=== PATIENT | male | born 1950 | race Caucasian/White ===

== ENCOUNTER 2017-02-27 08:40 | Day surgery (SDC) | payer BC ==
--- NOTE | 2017-02-14 22:09 | HP ---
CC: Dr. Tara Moreland; Dr. Tena, Cardiology in [place], [place] * ADMISSION HISTORY AND PHYSICAL: DATE OF ADMISSION: 02/27/17 ATTENDING SURGEON: Dr. Sean Moreira * (DICTATED BY TATI HAYNES) CHIEF COMPLAINT: Paraesophageal hiatal hernia. HISTORY OF PRESENT ILLNESS: This is a 66-year-old recently morbidly obese male who has a longstanding history of GERD and has a known hiatal hernia for many years. Earlier in the past year, he was experiencing increased shortness of breath and was evaluated by chest CT scan on 05/02/16, which showed multiple bilateral pulmonary nodules up to or less than 5 mm in size as well as a large hiatal hernia with most of the stomach in the chest with atelectasis of the left lower lobe. The patient was also initiating evaluation at that time for weight loss surgery, though on his own has lost between 50 and 60 pounds in the intervening months and at the present time is no longer considering weight loss surgery. He underwent ultrasound of the liver and gallbladder on 01/02/17, which showed hepatomegaly, particularly with enlargement of the caudate lobe as well as fatty changes of the liver. There were no gallstones. An EGD was performed on 02/01/17, which showed large hiatal hernia with a tortuous esophagus. The patient states that his shortness of breath has entirely resolved since the weight loss. His GERD symptoms are generally well controlled with daily Prilosec. He was seen by Dr. Moreira in June and then again more recently on 01/05/17. Dr. Moreira has reviewed his workup and studies and has recommended repair of this large paraesophageal hiatal hernia. The patient understands the indications, risks, benefits and alternatives and would like to proceed as scheduled with laparoscopic repair of paraesophageal hiatal hernia with fundoplication. PAST MEDICAL HISTORY: Morbid obesity, asthma and COPD, coronary artery disease (status post MN in 2005 and status post PTCA with stent in 2005 of the LAD, subsequent catheterization in 2009 showed patent stent). He is also treated for environmental allergies, sleep apnea, and osteoarthritis. He has a history of Meniere's disease with resultant hearing loss. PAST SURGICAL HISTORY: Include tonsillectomy remotely, right knee arthroscopy, and DATA ANALYTICS ANALYST with stent as noted above. No reported surgical or anesthesia complications. CURRENT MEDICATIONS: 1. Nitroglycerin 0.4 mg sublingual p.r.n. (has never needed). 2. Ramipril 5 mg daily. 3. Crestor 5 mg every other day. 4. Aspirin 81 mg daily (the patient will stop preoperatively, his last dose being 02/20/17). 5. Prilosec 20 mg daily. 6. Advair Diskus 250/50 mcg one puff daily. 7. Proventil HFA two puffs q.i.d. p.r.n. (has not required recently). 8. Multivitamin once daily. 9. Glucosamine and chondroitin one tablet b.i.d. 10. Singulair 10 mg daily. 11. Sakshi 180 mg daily. 12. Fish oil 1000 mg daily. 13. Spiriva 18 mcg 2 inhalations once daily. 14. Nasonex two sprays each nostril once daily p.r.n. (has not required recently). 15. Clonazepam 0.5 mg b.i.d. p.r.n. for Meniere's (has not required recently). 16. DuoNeb every 6 hours p.r.n. (has not required recently). 17. Spironolactone and hydrochlorothiazide 25/25 one-half tablet once daily. 18. Ibuprofen 800 mg daily p.r.n. (has not required recently). DRUG ALLERGIES: None known. FAMILY HISTORY: Negative for anesthesia problems, bleeding or clotting disorders. SOCIAL HISTORY: The patient is . He previously worked as an auto customize painter, but is not working at present time. He is a former smoker of one-and- a-half to two packs per day for 40 years. He quit 10 years ago. He has discussed low-dose CT screening and followup of the recent CT scan for screening for lung cancer. He drinks on average 6 beers per month that was advised to stop in preparation for and following hiatal hernia repair. He denies recreational drug use. REVIEW OF SYSTEMS: General: No recent constitutional symptoms or acute illnesses, other than described in the HPI. He has had weight loss of approximately 50 to 60 pounds in the last 9 months, which has been intentional. Cardiovascular: He was seen by his administrative associate, Dr. Tena in [place] for preoperative evaluation (see separate report). Respiratory: No recent exacerbations of his asthma or COPD. GI: As above per HPI. No lower GI symptoms. Colonoscopy done approximately 4 years ago with removal of benign polyps and recommended 10-year followup. : No problems reported. Endocrine : No diabetes, no thyroid dysfunction. PHYSICAL EXAMINATION GENERAL: Well-nourished, obese male, in no acute distress. VITAL SIGNS: Height 72 inches, weight 254 pounds, BMI 34.4. Blood pressure 116 /64, pulse 68, respirations 16. HEENT: He has bilateral hearing aids. Oropharynx: Many teeth missing. He does have dentures at home. No intraoral lesions. NECK: No lymphadenopathy, thyromegaly, or masses. LUNGS: Clear to auscultation, though decreased breath sounds throughout, possibly a few bibasilar crackles. HEART: Regular rate and rhythm. No murmur noted. ABDOMEN: Obese. There is a small umbilical hernia with a fingertip defect. This is nontender and easily reducible. Abdomen is otherwise soft, nontender to palpation without palpable masses or organomegaly. GENITALIA: Not examined (done within the past year for his annual physical). No inguinal hernia is reported. EXTREMITIES: No edema. RECTAL: Not repeated, done within the past year as noted above. NEUROLOGIC: Grossly intact, other than for decreased hearing acuity. SKIN: Warm and dry. No suspicious rashes or lesions noted. IMPRESSION: Large paraesophageal hiatal hernia. PLAN: Laparoscopic repair of paraesophageal hiatal hernia with fundoplication. TATI HAYNES [id number]/[facility] #: [id number] MARGIE
[~2017-02-27 08:40] MED LIST: Acetaminophen IV 1GM/100ML * 10 MG/ML VIAL IVPB ONE; Buffered Lidocaine 0.9% SYRIN* 5 ML/SYR SYRINGE INTRADERM ONE; Dexamethasone IV* 4 MG/ML 1 ML (4 MG) IV SLOW PU ONE; Sodium Citrate/Citric Acid* 15 ML UDC PO ONE
[2017-02-27] MEDS ORDERED: Dexamethasone IV* 4 MG/ML 1 ML (4 MG) ONE (08:58)
[2017-02-27] MEDS ORDERED: Buffered Lidocaine 0.9% SYRIN* 5 ML/SYR SYRINGE ONE (08:58)
[2017-02-27] MEDS ORDERED: Sodium Citrate/Citric Acid* 15 ML UDC ONE (08:58)
[2017-02-27] MEDS ORDERED: Heparin VIAL(*) 5000 UNITS/ML VIAL (FIVE THOUSAND) ONE (08:58)
[2017-02-27] MEDS ORDERED: ceFAZolin 2 GM PREMIX (*) 2 GM/50 ML BAG IVPB ONE (09:03)
[2017-02-27] MEDS ORDERED: Acetaminophen IV 1GM/100ML * 100 ML ONE (09:36)
[2017-02-27] MEDS ORDERED: Midazolam* 1 MG/ML 2 ML VIAL (2 MG) ONE (09:57)
[2017-02-27] MEDS ORDERED: fentaNYL* 50 MCG/ML 2 ML VIAL (100 MCG VIAL) ONE ×4 (09:57→14:39)
[2017-02-27] MEDS ORDERED: Bupivacaine 0.25% SDV* 30 ML ONE (09:58)
[2017-02-27] MEDS ORDERED: Rocuronium* 10 MG/ML VIAL ONE (09:58)
[2017-02-27] MEDS ORDERED: Propofol* 10 MG/ML 20 ML BTL IV PUSH ONE (10:03)
[2017-02-27] MEDS ORDERED: EPHEDrine (Pressors)* 50 MG/ML VIAL ONE (10:03)
[2017-02-27] MEDS ORDERED: Sterile Water for Inj* 10 ML ONE (10:03)
[2017-02-27] MEDS ORDERED: Sugammadex * 200 MG/2 ML VIAL IV PUSH ONE (10:12)
[2017-02-27] MEDS ORDERED: Surgical Lubricant STERILE* 120 GM TOP.GEL ONE (10:54)
[2017-02-27] MEDS ORDERED: Ketorolac INJ* 30 MG/ML 1 ML VIAL ONE (11:06)
[2017-02-27] MEDS ORDERED: Ondansetron INJ* 2 MG/ML VIAL ONE (11:06)
[2017-02-27] MEDS ORDERED: Scopolamine 1.5 mg* PATCH TRANSDERM PRN (11:36)
[2017-02-27] MEDS ORDERED: Naloxone* 0.4 MG/ML 1 ML VIAL IV PRN (11:36)
[2017-02-27] MEDS ORDERED: Levalbuterol 0.63MG/3ML NEB* UNIT OF USE INH PRN (11:36)
[2017-02-27] MEDS ORDERED: oxyCODONE TAB* 5 MG TAB PO PRN (11:36)
[2017-02-27] MEDS ORDERED: Ibuprofen TAB* 600 MG PO PRN (11:36)
[2017-02-27] MEDS ORDERED: HYDROmorphone INJ* 1 MG/ML CARPUJECT SYRINGE IV PRN (11:36)
[2017-02-27] MEDS ORDERED: Ondansetron INJ* 2 MG/ML VIAL IV PRN ×2 (11:36→14:08)
[2017-02-27] MEDS ORDERED: Atracurium* 10 MG/ML 10 ML VIAL ONE (13:08)
[2017-02-27] MEDS ORDERED: HYDROmorphone INJ* 2 MG/ML CARPUJECT SYRINGE IV PRN (14:08)
[2017-02-27] MEDS ORDERED: Acetaminophen ADULT LIQ* 650 MG/20.3 ML UDC PO PRN (14:14)
[2017-02-27] MEDS ORDERED: Albuterol HFA INHALER* 8 gm MDI INH PRN (14:14)
[2017-02-27] MEDS ORDERED: Nitroglycerin TAB 0.4 MG* 0.4 MG TAB SL PRN (14:14)
--- NOTE | 2017-02-27 14:19 | PN ---
Progress Note - Progress Note Date of Service: 02/27/17 Note: Brief Operative Note: Pre-op: Hiatal hernia, GERD Post-op: Same Procedure: Laparoscopic paraesophageal hiatal hernia repair with Vic's fundoplication Surgeon: Dr. Moreira Tunnel Inspector: Facundo Josue PA Anaesthesia: GETA EBL: Minimal Fluids: LR 2,000 cc Catheter: Dennis to gravity, D/C'ed at PACU Drains: None Specimen: None Findings: See dictated op note
[2017-02-27] MEDS: fentaNYL* 50 MCG/ML 2 ML VIAL (100 MCG VIAL) IV PRN ×2 (14:40→15:13)
[2017-02-27] MEDS: Mometasone/Formoter 200/5 MDI INH SCH (21:39)
[2017-02-27] MEDS: Famotidine IV* 10 MG/ML 2 ML (20 mg) IV SLOW PU SCH (21:41)
[2017-02-27] MEDS: Fluticasone NASAL SPRAY 50MCG* 16 gm SPRAY BTL BOTH NARES SCH (21:41)
[2017-02-27] MEDS: Heparin VIAL(*) 5000 UNITS/ML VIAL (FIVE THOUSAND) SUBCUT SCH (21:43)
[2017-02-28] MEDS: HYDROcodone/ACET. 7.5/325 LIQ* 15 ML UDC PO PRN ×2 (02:34→08:47)
[2017-02-28] MEDS: Heparin VIAL(*) 5000 UNITS/ML VIAL (FIVE THOUSAND) SUBCUT SCH (05:28)
[2017-02-28 05:59] LABS: ABS Basophils 0 10^3/ul (0-0.2); ABS Eosinophils 0 10^3/ul (0-0.6); ABS Lymphocytes 0.9 10^3/ul (1.0-4.8); ABS Monocytes 0.7 10^3/ul (0-0.8); ABS Neutrophils 8.8 10^3/ul (1.5-7.7); ABS Nucleated RBC 0 10^3/ul; Eosinophil % 0 % (0-6); Hematocrit 39 % (42-52); Hemoglobin 13.4 g/dl (14.0-18.0); Lymphocyte % 8.3 % (25-47); Mean Corpuscular HGB Conc 34 g/dl (31-36); Mean Corpuscular Hemoglobin 30 pg (27-31); Mean Corpuscular Volume 86 fL (80-94); Mean Platelet Volume 8 um3 (7.4-10.4); Nucleated Red Blood Cells % 0.1; Platelet Count 182 10^3/ul (150-450); Red Blood Count 4.54 10^6/ul (4.0-5.4); Red Cell Distribution Width 14 % (10.5-15); White Blood Count 10.4 10^3/ul (3.5-10.8)
[2017-02-28 06:13] LABS: EGFR Non-African American 89.5 (>60)
[2017-02-28] MEDS: Mometasone/Formoter 200/5 MDI INH SCH (07:36)
[2017-02-28] MEDS: Fluticasone NASAL SPRAY 50MCG* 16 gm SPRAY BTL BOTH NARES SCH (08:50)
[2017-02-28] MEDS: Famotidine IV* 10 MG/ML 2 ML (20 mg) IV SLOW PU SCH (08:50)
[2017-02-28] MEDS ORDERED: Tiotropium CAP.INH* CAP.INH/18 MCG (USE ORDER SET !) INH SCH (09:00)
[2017-02-28] MEDS ORDERED: Spiriva Inhaler DEVICE* 1 EACH DEVICE INH ONE (09:00)
[2017-02-28 12:32] VITALS: BP 118/60
--- NOTE | 2017-02-28 12:59 | OP ---
CC: Tara Moreland MD; Dr. Tena, filter tender, [place] * DATE OF OPERATION: 02/27/17 - ROOM #332 DATE OF : 54 SURGEON: Sean Moreira MD ASSISTANTS: 1. Robert Hager MD 2. TATI Pollack ANESTHESIOLOGIST: Lyric Gage MD ANESTHESIA: General endotracheal. PRE-OP DIAGNOSIS: Paraesophageal hernia. POST-OP DIAGNOSIS: Paraesophageal hernia. OPERATIVE PROCEDURE: Laparoscopic repair of paraesophageal hernia with Vic fundoplication. ESTIMATED BLOOD LOSS: Minimal. IV FLUIDS: 2 L of crystalloid. SPECIMENS: None. DRAINS: None. COMPLICATIONS: None. COUNTS: Instrument, needle, and sponge counts were correct. DESCRIPTION OF PROCEDURE: The patient was brought to the operating room and placed on the table supine. Sequential compression devices were placed on both lower extremities. General anesthesia was administered. A Dennis catheter was placed. He was positioned and padded appropriately. He was prepped and draped in the usual sterile fashion and time-out was performed. Local anesthetic was infiltrated into the skin and soft tissue prior to making each incision. Entry through the abdomen was through a left upper quadrant incision accommodating a 5-mm optical trocar. After accessing the peritoneal cavity, carbon dioxide was insufflated to a pressure of 15 mmHg. Under direct visualization, 5-mm trocars were placed in the supraumbilical midline and in the right upper quadrant and also in the left upper quadrant laterally. The initial trocar was replaced with a 12-mm trocar. A Filiberto liver retractor was placed percutaneously in the subxiphoid position and used to elevate left lobe of the liver. The patient was noted to have a large paraesophageal hernia with majority of the stomach contained within the chest. This was reduced with [id number] technique with atraumatic graspers. The short gastric vessels were next divided in order to approach the left fox of the diaphragm. The sac of the hernia was then scored along the edge of the hiatus anteriorly across the right side, and the dissection also proceeded from pars flaccida up to the right fox of the diaphragm. A proper plane was identified to allow reduction of the sac with a [id number]-[id number] technique and in this fashion, the esophagus was identified at the gastroesophageal junction. The dissection then proceeded retroesophageally using the blunt dissection to get behind the esophagus and subsequently a quarter-inch Jah drain was used to encircle the gastroesophageal junction and secure the portions of the dissection. The LigaSure was used for all the dissection and the dissection proceeded up into the mediastinum to free attachments from the esophagus to the pleura and surrounding adventitial tissues. The vagal trunks were identified and preserved. The esophagus was mobilized circumferentially so that it was within the abdomen about 4 to 5 cm. Next, the hiatus was closed with series of interrupted 0 braided polyester sutures utilizing polyester patch for pledgeting. A series of approximately 5 sutures was placed to complete the closure which was performed over a 58-Bruneian bougie. Then, 360-degree fundoplication was performed with placement of 3-0 braided polyester sutures, the upper suture incorporating a portion of the esophageal wall. The fundoplication was again performed over the 58-Bruneian bougie. Lastly, 3-0 braided polyester suture was used to secure the white portion of the fundoplication to the right fox of the diaphragm. Inspection revealed the hemostasis to be excellent. The ports removed under direct visualization and carbon dioxide was released. Skin incisions were closed with 4-0 Monocryl in subcuticular fashion. Steri-Strips were applied. The patient tolerated the procedure well. He was extubated and was transferred to the recovery room in stable condition. [id number]/[facility] #: [id number] MTDD
[2017-03-02] MEDS ORDERED: Scopolamine PATCH Remove* 1 NOTE MISC PATCH OFF ONE (11:37)
== END 2017-02-28 12:20 | disposition home or self-care (01) ==
LOC: OR 08:40 → SSU 17:09
PROVIDERS: ADMIT Surgery; ATTEND Surgery
PROC: 0DV44ZZ Restriction of Esophagogastric Junction, Percutaneous Endoscopic Approach (ICD-10-PCS; 2017-02-27)
PROC: 0BQT4ZZ Repair Diaphragm, Percutaneous Endoscopic Approach (ICD-10-PCS; principal; 2017-02-27 10:15)
DX: K44.9 Diaphragmatic hernia without obstruction or gangrene (principal); E66.01 Morbid (severe) obesity due to excess calories; J44.9 Chronic obstructive pulmonary disease, unspecified; I25.10 Atherosclerotic heart disease of native coronary artery without angina pectoris; Z95.5 Presence of coronary angioplasty implant and graft; I25.2 Old myocardial infarction; Z79.899 Other long term (current) drug therapy; Z79.82 Long term (current) use of aspirin; Z87.891 Personal history of nicotine dependence
CPT/HCPCS: 36415; 80048; 85025; 94640; A9270-GY; G0378; J0690; J1100; J1644; J1885; J2250; J2405; J2704; J3010

== ENCOUNTER 2022-01-27 07:40 | Observation (INO) ==
[~2022-01-27 07:40] MED LIST changes: -Acetaminophen IV 1GM/100ML * 10 MG/ML VIAL IVPB ONE; -Buffered Lidocaine 0.9% SYRIN* 5 ML/SYR SYRINGE INTRADERM ONE; +Buffered Lidocaine 1% SYRIN 1 ml INTRADERM ONE; -Dexamethasone IV* 4 MG/ML 1 ML (4 MG) IV SLOW PU ONE; +HYDROcodone/ACETAMIN 5/325 mg TAB PO PRN; +Lactated Ringers 1000 ml BAG 1,000 ML IV SCH; +Metoclopramide 5 MG/ML VIAL (10 mg) IV PRN; +Naloxone 0.4 mg VIAL 0.4 mg/ml 1 ml VIAL IV PRN; +Ondansetron 4 mg VIAL 2 MG/ML 2 ml VIAL IV PRN; -Sodium Citrate/Citric Acid* 15 ML UDC PO ONE
[2022-01-27] MEDS ORDERED: Midazolam 5 mg/5 ml VIAL 1 mg/ml 5 ml VIAL (5 mg) ONE (08:11)
[2022-01-27] MEDS ORDERED: Ketamine HCL 50 mg/ml 10 ml VIAL (500 MG) ONE (08:11)
[2022-01-27] MEDS ORDERED: Propofol 10 MG/ML 20 ML BTL ONE (08:11)
[2022-01-27] MEDS ORDERED: Ropivacaine 5 MG/ML 20 ML VIAL 0.5% (100 MG) ONE ×2 (08:21→09:08)
[2022-01-27] MEDS ORDERED: Phenylephrine IV 10 MG/ML 1 ml VIAL ONE (08:21)
[2022-01-27] MEDS ORDERED: Lidocaine 2% PF 5 ML VIAL ONE (08:22)
[2022-01-27] MEDS ORDERED: ceFAZolin 2 GM PREMIX 2 GM/50 ML BAG ONE (08:38)
[2022-01-27] MEDS ORDERED: Rocuronium 50 mg VIAL 10 mg/ml 5 ml VIAL (50 mg) ONE ×2 (08:54→11:44)
[2022-01-27] MEDS ORDERED: fentaNYL 250 mcg/5 ml 50 MCG/ML 5 ml VIAL (250 MCG) ONE (08:57)
[2022-01-27] MEDS ORDERED: ceFAZolin 1 GM in Dextrose 1 GM/50 ML BAG ONE (09:00)
[2022-01-27] MEDS ORDERED: Ondansetron 4 mg VIAL 2 MG/ML 2 ml VIAL ONE (11:19)
[2022-01-27] MEDS ORDERED: Dexamethasone IV 4 MG/ML VIAL 1 ml VIAL ONE (11:19)
[2022-01-27] MEDS ORDERED: Levalbuterol HFA INHALER MDI ONE (12:17)
[2022-01-27] MEDS ORDERED: Ondansetron ODT 4 mg TAB 4 MG TAB PO PRN (13:17)
[2022-01-27] MEDS ORDERED: Magnesium Hydroxide LIQ 30 ML UDC PO PRN (13:17)
[2022-01-27] MEDS ORDERED: Lactulose 30 ml UDC PO PRN (13:17)
[2022-01-27] MEDS ORDERED: Ondansetron 4 mg VIAL 2 MG/ML 2 ml VIAL IV PRN (13:17)
[2022-01-27] MEDS ORDERED: Morphine 2 MG/ML SYRINGE IV PRN (13:17)
[2022-01-27] MEDS ORDERED: fentaNYL 100 mcg/2 ml 50 MCG/ML VIAL ONE (13:45)
[2022-01-27] MEDS: fentaNYL 100 mcg/2 ml 50 MCG/ML VIAL IV PRN ×2 (13:48→13:57)
[2022-01-27] MEDS ORDERED: Lactated Ringers 1000 ml BAG 1,000 ML IV SCH (14:00)
[2022-01-27] MEDS ORDERED: Albuterol HFA INHALER 8 gm MDI INH PRN (15:24)
[2022-01-27] MEDS: ceFAZolin 1 GM ADVAN 1 GM in NS 0.9% 50 ML 50 ML IVPB SCH (19:40)
[2022-01-27] MEDS: Mometasone/Formoter 200/5 MDI INH SCH (20:35)
[2022-01-27] MEDS: Magnesium Hydroxide LIQ 30 ML UDC PO SCH (21:12)
[2022-01-28] MEDS: ceFAZolin 1 GM ADVAN 1 GM in NS 0.9% 50 ML 50 ML IVPB SCH ×3 (03:43→10:55)
[2022-01-28 07:17] LABS: Hematocrit 38 % (42-52); Mean Platelet Volume 7.7 fL (7.4-10.4); Platelet Count 205 10^3/uL (150-450)
[2022-01-28] MEDS: Magnesium Hydroxide LIQ 30 ML UDC PO SCH (07:41)
[2022-01-28 07:47] LABS: Calcium 8.7 mg/dL (8.6-10.3); Potassium 4.4 mmol/L (3.5-5.0); eGFR CKD-EPI 93.4 (>60)
[2022-01-28] MEDS: Mometasone/Formoter 200/5 MDI INH SCH (07:56)
[2022-01-28 08:31] VITALS: BP 116/66
[2022-01-28] MEDS ORDERED: SPIRIVA Respimat (tiotropium) 2.5 mcg/inh Inhaler INH SCH (09:00)
[2022-01-28] MEDS ORDERED: Vitamin THERAPEUTIC TAB PO SCH (09:00)
[2022-01-28] MEDS ORDERED: Aspirin EC 81 mg TAB.EC (enteric coated) PO SCH (09:00)
[2022-01-28] MEDS ORDERED: Spironolactone/HCTZ 25-25 mg PO SCH (09:00)
[2022-01-28] MEDS ORDERED: Cholecalciferol (VIT D3) 1,000 unit TAB PO SCH (09:00)
== END 2022-01-28 11:30 | disposition home or self-care (01) ==
LOC: OR 07:40 → SSU 07:40
PROVIDERS: ADMIT Orthopaedic Surgery Adult Reconstructive Orthopaedic Surgery; ATTEND Orthopaedic Surgery Adult Reconstructive Orthopaedic Surgery

== ENCOUNTER 2022-09-12 05:47 | Observation (INO) ==
[2022-09-12] MEDS ORDERED: Lactated Ringers 1000 ml BAG 1,000 ML IV SCH (06:00)
[2022-09-12] MEDS ORDERED: Famotidine IV 10 MG/ML 2 ml VIAL (20 mg) IV ONE (06:00)
[2022-09-12] MEDS ORDERED: Buffered Lidocaine 1% SYRIN 1 ml INTRADERM ONE (06:00)
[2022-09-12] MEDS ORDERED: ceFAZolin *3* GM in NS PREMIX 3 GM/100 ML BAG IV ONE (06:12)
[2022-09-12] MEDS ORDERED: Famotidine IV 10 MG/ML 2 ml VIAL (20 mg) ONE (06:12)
[2022-09-12 06:21] LABS: Rapid COVID-19 Molecular Undetected (Undetected)
[2022-09-12] MEDS ORDERED: ROPIVACAINE 5 MG/ML 30 ML BTL (0.5%) ONE (06:37)
[2022-09-12] MEDS ORDERED: Rocuronium 50 mg VIAL 10 mg/ml 5 ml VIAL (50 mg) ONE (06:49)
[2022-09-12] MEDS ORDERED: fentaNYL 100 mcg/2 ml 50 MCG/ML VIAL ONE ×3 (06:50→11:09)
[2022-09-12] MEDS ORDERED: Midazolam 2 mg/2 ml VIAL 1 mg/ml 2 ml VIAL (2 mg) ONE (06:50)
[2022-09-12] MEDS ORDERED: Lidocaine 2% PF 5 ML VIAL ONE (06:51)
[2022-09-12] MEDS ORDERED: Dexamethasone IV 4 MG/ML VIAL 1 ml VIAL ONE (06:51)
[2022-09-12] MEDS ORDERED: Phenylephrine 40 mcg/mL 10mL (400mcg) SYRINGE ONE (06:51)
[2022-09-12] MEDS ORDERED: Ondansetron 4 mg VIAL 2 MG/ML 2 ml VIAL ONE (06:51)
[2022-09-12] MEDS ORDERED: Propofol 10 MG/ML 20 ML BTL ONE ×2 (06:51→08:22)
[2022-09-12] MEDS ORDERED: Phenylephrine IV 10 MG/ML 1 ml VIAL ONE (06:51)
[2022-09-12] MEDS ORDERED: Sevoflurane BOTTLE ONE (07:10)
[2022-09-12] MEDS ORDERED: Bupivacaine 0.5% PF 10 ML SDV VIAL INJ ONE (07:10)
[2022-09-12] MEDS ORDERED: Levalbuterol HFA INHALER MDI ONE (08:12)
[2022-09-12] MEDS ORDERED: Phenylephrine 1% NASAL 15 ML BOT ONE (08:18)
[2022-09-12] MEDS ORDERED: Magnesium Hydroxide LIQ 30 ML UDC PO PRN (08:25)
[2022-09-12] MEDS ORDERED: Ondansetron 4 mg VIAL 2 MG/ML 2 ml VIAL IV PRN (08:25)
[2022-09-12] MEDS ORDERED: Lactulose 30 ml UDC PO PRN (08:25)
[2022-09-12] MEDS ORDERED: Ondansetron ODT 4 mg TAB 4 MG TAB PO PRN (08:25)
[2022-09-12] MEDS ORDERED: Morphine 2 MG/ML SYRINGE IV PRN (08:25)
[2022-09-12] MEDS ORDERED: Naloxone 0.4 mg VIAL 0.4 mg/ml 1 ml VIAL IV PRN (08:58)
[2022-09-12] MEDS ORDERED: Levalbuterol 0.63MG/3ML NEB UNIT OF USE INH PRN (08:58)
[2022-09-12] MEDS ORDERED: HYDROmorphone 1 MG/1 ML SYRINGE IV PRN (08:58)
[2022-09-12] MEDS ORDERED: HYDROmorphone 0.5 MG/0.5 ML SYRINGE ONE (09:53)
[2022-09-12] MEDS ORDERED: Albuterol/Ipratropium NEB.SOL (2.5/0.5 MG) 3 ML NEB.SOLN INH PRN (11:02)
[2022-09-12] MEDS: fentaNYL 100 mcg/2 ml 50 MCG/ML VIAL IV PRN ×2 (11:10→11:21)
[2022-09-12] MEDS ORDERED: Fluticasone NASAL SPRAY 50MCG 16 gm SPRAY BTL BOTH NARES PRN (12:46)
[2022-09-12] MEDS: Vitamin THERAPEUTIC TAB PO SCH (13:56)
[2022-09-12] MEDS: Magnesium Hydroxide LIQ 30 ML UDC PO SCH ×2 (13:56→21:31)
[2022-09-12] MEDS: ceFAZolin 1 GM ADVAN 1 GM in NS 0.9% 50 ML 50 ML IVPB SCH ×2 (16:05→23:35)
[2022-09-12] MEDS: Lactated Ringers 1000 ml BAG 1,000 ML IV SCH ×2 (16:26→22:00)
[2022-09-12] MEDS: Mometasone/Formoter 100/5 MDI INH SCH (19:29)
[2022-09-13 05:52] VITALS: BP 124/73
[2022-09-13 07:31] LABS: Hematocrit 38.7 % (38-53); Hemoglobin 13.1 g/dL (13.2-16.3); Mean Platelet Volume 8.7 fL (7.5-11.2); Platelet Count 191 10^3/uL (150-450)
[2022-09-13] MEDS: Magnesium Hydroxide LIQ 30 ML UDC PO SCH (07:32)
[2022-09-13] MEDS: Vitamin THERAPEUTIC TAB PO SCH (07:33)
[2022-09-13 07:36] LABS: Calcium 8.2 mg/dL (8.6-10.3); Creatinine, Serum 0.79 mg/dL (0.67-1.17); eGFR CKD-EPI 95.6 (>60)
[2022-09-13] MEDS: ceFAZolin 1 GM ADVAN 1 GM in NS 0.9% 50 ML 50 ML IVPB SCH (07:41)
[2022-09-13] MEDS: Mometasone/Formoter 100/5 MDI INH SCH (07:44)
[2022-09-13] MEDS ORDERED: SPIRIVA Respimat (tiotropium) 2.5 mcg/inh Inhaler INH SCH (09:00)
[2022-09-13] MEDS ORDERED: Aspirin EC 81 mg TAB.EC (enteric coated) PO SCH (09:00)
[2022-09-13] MEDS ORDERED: Cholecalciferol (VIT D3) 1,000 unit TAB PO SCH (09:00)
== END 2022-09-13 10:45 | disposition home or self-care (01) ==
LOC: SSU 05:47 → OR 05:47
PROVIDERS: ADMIT Orthopaedic Surgery Adult Reconstructive Orthopaedic Surgery; ATTEND Orthopaedic Surgery Adult Reconstructive Orthopaedic Surgery